=== PATIENT | female | born 1980 | race Caucasian/White ===

== ENCOUNTER 2018-10-20 07:43 | Emergency (ER) | payer MEDICAID ==
--- NOTE | 2018-10-20 07:46 | EDPHY ---
H & P Time Seen by Provider: 10/20/18 07:46 HPI/ROS: CHIEF COMPLAINT: Cough for 5 days HISTORY OF PRESENT ILLNESS: Arrives by EMS from the nursing home complaining of coughing green sputum for 5 days. Associated with subjective fever and chills. Also associated with just feeling very tired. Not short of breath, no chest pain. Symptoms moderate. Not better or worse with anything. REVIEW OF SYSTEMS: Eye: no change in vision ENT: Some ear fullness but no sore throat or pharyngeal or dental complaints. Cardiac: no chest pain or syncope Pulmonary: HPI Abdomen: no vomiting, diarrhea, abdominal pain Musculoskeletal: Lower leg pain which is chronic the patient says she has neuropathy and used to take gabapentin. Skin: Some toe erosions from friction of her toenails Neuro: no headache Constitutional: no fever : no urinary symptoms A comprehensive 10 point review of systems is otherwise negative aside from elements mentioned in the history of present illness. PAST MEDICAL HISTORY: Includes PTSD, scoliosis, seizure 1 month ago in [place] which she says is from a newly diagnosed Chiari malformation. Social history: Residing at the nursing home General Appearance: Alert and conversant, cooperative. Eyes: No scleral icterus. ENT, Mouth: Normal mucous membranes. No pharyngeal erythema or exudate. No trismus. Uvula midline. Normal tympanic membranes. Respiratory: Normal respiratory effort, normal saturation, no accessory muscle use. Breath sounds equal bilaterally with slight expiratory wheezing heard. No focal lung sounds. Cardiovascular: Regular rate and rhythm. Gastrointestinal: Abdomen is soft and non tender. Neurological: Alert, face symmetric, normal motor and sensory in extremities. Skin: Excoriation on the 4th and 3rd toes from her toenails. She has bilateral toenail fungus and her toenails all extend at least 1 cm distal from the nail bed. Musculoskeletal: No peripheral edema. Psychiatric: Not agitated. Depressed affect, denies SI or HI or hallucinations. Emergency Department course/MDM: Patient presents with likely viral syndrome or bronchitis. She does not have clinical evidence of pneumonia, or influenza. She is out of the 48 hr treatment window for influenza. Doubt pulmonary embolism or pneumothorax. Nebulizer treatment, oral ibuprofen and Tylenol. Her foot looks like at least 2 toes have skin excoriation from long rough toenails and does not have clinical evidence of cellulitis. No redness or warmth or lymphangitis or swelling. Case management for follow-up. Constitutional: Initial Vital Signs Temperature (C) 36.8 C 10/20/18 07:45 Heart Rate 87 10/20/18 07:45 Respiratory Rate 18 10/20/18 07:45 Blood Pressure 122/93 H 10/20/18 07:45 O2 Sat (%) 97 10/20/18 07:45 O2 Delivery Mode Room Air Allergies/Adverse Reactions: Sulfa (Sulfonamide Antibiotics) Allergy (Verified 10/20/18 07:50) Home Medications: Medication Instructions Recorded Albuterol Hfa Anes Only [Proair 2 puffs IH QID #1 mdi 10/20/18 Hfa Icu (*)] Trileptal 10/20/18 Medical Decision Making - Data Points Medications Given: Discontinued Medications Acetaminophen (Tylenol) 650 mg PO EDNOW ONE Stop: 10/20/18 08:05 Last Admin: 10/20/18 08:11 Dose: 650 mg Albuterol/Ipratropium (Duoneb) 3 ml IH EDNOW ONE Stop: 10/20/18 08:05 Last Admin: 10/20/18 08:11 Dose: 3 ml Ibuprofen (Motrin) 600 mg PO EDNOW ONE Stop: 10/20/18 08:05 Last Admin: 10/20/18 08:10 Dose: 600 mg Departure - Departure Disposition: Home, Routine, Self-Care Clinical Impression: Acute bronchitis Condition: Good Instructions: Acute Bronchitis (ED) Referrals: [facility],. [Clinic] - As per Instructions Prescriptions: Albuterol Hfa Anes Only [Proair Hfa Icu (*)] 2 puffs IH QID #1 mdi
[2018-10-20] MEDS ORDERED: IPRATROPIUM/ALBUTEROL 3 ML DEYVIAL IH ONE (08:04)
[2018-10-20] MEDS ORDERED: ACETAMINOPHEN 325 MG TAB PO ONE (08:04)
[2018-10-20] MEDS ORDERED: IBUPROFEN 600 MG TAB PO ONE (08:04)
[2018-10-20 09:06] VITALS: BP 113/69
--- NOTE | 2018-10-20 10:51 | ASMTCMCOM ---
CM Note CM Note Notes: Pt presented to the ED via EMS for a productive cough x 5days. Pt is homeless and states she is from the [place] area and states her previous clinic was located in [place]. Of note, when this CM called [facility] to arrange Medicaid cab, it was discovered that pt's last name is actually Nils; MEdicaid has pt listed as Caron Wray w/ 81 and confirmed w/SSN. Registration spoke w/pt and she states she has identification cards that also list her last name as Sarita but was not willing to provide them to registration so registration is not able to change pt's name to Nils for this visit. Pt states she has completed Coordinated Entry and was referred to the [facility]. This CM arranged for a Medicaid cab to transport pt to [facility] so she is near [facility] when [facility]. Pt provided info on [facility] and their Homeless Drop-In Hours. Pt provided Rxns and recommended to get them filled through her Medicaid at a pharmacy of her choice. Pt asked for jacket or sweatshirt hoodie since she left her coat in [place]. This CM was only able to locate a sweatshirt hoodie which was provided to the pt. Pt states she already has gloves, a hat, a couple of scarves, etc. Pt provided other various homelessness resources including free community table meals, etc. CM available for further assistance if needed. Date Signed: 10/20/2018 10:51 AM Electronically Signed By:Bushra Graham RN
== END 2018-10-20 10:54 | disposition home or self-care (01) ==
DX: J20.9 Acute bronchitis, unspecified (principal); G93.5 Compression of brain; F43.10 Post-traumatic stress disorder, unspecified; M41.9 Scoliosis, unspecified; Z88.2 Allergy status to sulfonamides

== ENCOUNTER 2018-11-04 07:03 | Emergency (ER) | payer MEDICAID ==
--- NOTE | 2018-11-04 07:31 | EDPHY ---
HPI/HX/ROS/PE/MDM Narrative: CHIEF COMPLAINT: Sore throat, cough, frostbite hands HISTORY OF PRESENT ILLNESS: The patient is a 38 y/o female with a history of PTSD and neuropathy arriving via EMS complaining of a sore throat, blisters on her hands, and a headache onset several days ago. In late September she was in this emergency department and diagnosed with bronchitis. At that time she was prescribed an inhaler, which she states she did not fill. Her symptoms did not improve and she presented to the [facility] where she was diagnosed with pneumonia and prescribed Doxycycline. Since starting the antibiotics her cough and sore throat have worsened which is associated with coughing up green sputum. She has also had a subjective fever of 101 degrees primarily at night. In addition to her respiratory symptoms, she has blisters on both hands which she believes is due to frostbite and not a burn. Also reports poor po intake due to pain from blisters on tongue. No chills, chest pain, shortness of breath, palpitations, vomiting, diarrhea, urinary complaints, lightheadedness. REVIEW OF SYSTEMS: Aside from elements discussed in the HPI, a comprehensive 10-point review of systems was reviewed and is negative. PAST MEDICAL HISTORY: PTSD, scoliosis, neuropathy in feet, malformation in brain SOCIAL HISTORY: Transient, single, not employed, smokes tobacco VITAL SIGNS: Reviewed by me GENERAL: Somewhat discheveled, occasional cough, resting comfortably in no respiratory distress. HEENT: Atraumatic. Eyes: No icterus, no injection. Mouth: moist mucous membranes. Apthous ulcers on bilateral aspects of her tongue. No tonsillar enlargement or exudates. No erythema or lesions. Neck: supple with no adenopathy. LUNGS: Clear to auscultation bilaterally but with coarse breath sounds, no wheezes, rhonchi or rales. CARDIAC: Mild tachycardic, no rubs, murmurs or gallops. ABDOMEN: Soft, nontender, nondistended, bowel sounds normal. BACK: No CVA tenderness. EXTREMITIES: Range of motion is normal throughout. NEURO: Alert and oriented, grossly nonfocal. SKIN: Right hand: 1.5 cm blister over distal tip of the middle finger. Left Hand : 2 cm fluid filled blister covering entire distal phalanx of the thumb, blisters on index and middle. The middle finger has a popped blister over distal phalanxs and smaller blister on middle phalanx. Warm and dry, no rash. PSYCHIATRIC: Normal mentation, no agitation. Portions of this note were transcribed by a rn medical inpatient services. I personally performed a history, physical exam, medical decision making, and confirmed accuracy of information the transcribed note. ED Course: The patient is a 38 y/o female with a history of PTSD and neuropathy arriving via EMS complaining of a sore throat, blisters on her hands, and a headache onset several days ago. She was recently diagnosed with bronchitis and pneumonia and started on Doxycycline. On exam today she has bilateral ulcerations on her tongue. Her posterior pharynx is clear and she has no tonsillar enlargement. She has blisters consistent with frostbite on ther hands. Patient most likely has a viral infection, bronchitis, and frostbite on her fingers. 1gm Tylenol and 500mg Zithromax administered. 0805: Reassessed patient and discussed her prescriptions. Robitussin DM administered prior to discharge. I have advised her to use the albuterol inhaler (which she was given in the ED), to filler her azithromycin, and to use Magic Mouthwash, and take Tylenol or ibuprofen. Return precautions provided; patient is comfortable with this plan. MDM: Diff dx considered included viral syndrome, bronchitits, frostbite, thermal patel, seizure activity, [id number] disease, dehydration. - Data Points Medications Given: Discontinued Medications Acetaminophen (Tylenol) 1,000 mg PO EDNOW ONE Stop: 11/04/18 07:38 Last Admin: 11/04/18 07:51 Dose: 1,000 mg Albuterol Sulfate (Proventil Inh Prepack) 1 mdi TAKEHOME EDNOW ONE Stop: 11/04/18 07:43 Last Admin: 11/04/18 07:52 Dose: 1 mdi Azithromycin (Zithromax) 500 mg PO EDNOW ONE PRN Reason: Protocol Stop: 11/04/18 07:39 Last Admin: 11/04/18 07:52 Dose: 500 mg Guaifenesin/Dextromethorphan (Robitussin Dm Oral Liquid) 10 ml PO ONCE ONE Stop: 11/04/18 08:00 Last Admin: 11/04/18 08:17 Dose: 10 ml General Time Seen by Provider: 11/04/18 07:11 Initial Vital Signs: Initial Vital Signs Temperature (C) 37.3 C 11/04/18 07:06 Heart Rate 117 H 11/04/18 07:06 Respiratory Rate 18 11/04/18 07:06 Blood Pressure 115/70 11/04/18 07:06 O2 Sat (%) 97 11/04/18 07:06 O2 Delivery Mode Room Air Allergies/Adverse Reactions: Sulfa (Sulfonamide Antibiotics) Allergy (Verified 10/20/18 07:50) Home Medications: Medication Instructions Recorded Albuterol Hfa Anes Only [Proair 2 puffs IH QID #1 mdi 10/20/18 Hfa Icu (*)] Trileptal 10/20/18 Azithromycin [Zithromax] 250 mg PO DAILY #4 tab 11/04/18 Guaifen/Dextromethorphan/PE 5 ml PO Q6 PRN #118 liquid 11/04/18 [Cough-Cold Syrup] Ibuprofen 600 mg PO Q8 PRN #20 tablet 11/04/18 Mbx Soln;Maalox/Diphen/Lido 5 ml PO PRN PRN #60 ml 11/04/18 [Maalox/Diphenhydramine/Lido] Departure - Departure Disposition: Home, Routine, Self-Care Clinical Impression: Viral syndrome, Bronchitis Frostbite Qualifiers: Encounter type: initial encounter Qualified Code(s): T33.90XA - Superficial frostbite of unspecified sites, initial encounter Condition: Good Instructions: Albuterol (By breathing), Frostbite (ED), Acute Bronchitis (ED), Viral Syndrome (ED) Additional Instructions: Follow-up with your primary doctor within 72 hours. Please use the albuterol inhaler 3 to 4 times a day for cough. Please take the antibiotic as directed. Azithromycin 250 mg once a day starting tomorrow morning. Her 1st dose was given in the emergency department. You been given a prescription for a cough syrup. Please take this as directed. You been given a prescription of Magic mouthwash. Please swish and swallow this to help with the pain from the blisters on her tongue and to help with your throat pain. Do not allow your fingers to become cold or rodriguez bitten again. Do not pop the blisters on your fingers. Please take Tylenol or ibuprofen as needed for pain on your fingers. Return to the Emergency Department for fever, chest pain, shortness of breath, increasing pain or other worsening of condition. Referrals: [facility],. [Clinic] - As per Instructions Prescriptions: Azithromycin [Zithromax] 250 mg PO DAILY #4 tab Guaifen/Dextromethorphan/PE [Cough-Cold Syrup] 5 ml PO Q6 PRN #118 liquid PRN Reason: Cough, Mild Ibuprofen 600 mg PO Q8 PRN #20 tablet PRN Reason: pain Mbx Soln;Maalox/Diphen/Lido [Maalox/Diphenhydramine/Lido] 5 ml PO PRN PRN #60 ml PRN Reason: mouth pain Report Scribed for: Sabrina Hodge Report Scribed by: Mara Hou Date of Report: 11/04/18 Time of Report: 07:29
[2018-11-04] MEDS ORDERED: ACETAMINOPHEN 500 MG TAB PO ONE (07:37)
[2018-11-04] MEDS ORDERED: AZITHROMYCIN 250 MG TAB PO ONE (07:38)
[2018-11-04] MEDS ORDERED: ALBUTEROL INH PREPACK MDI TAKEHOME ONE (07:42)
[2018-11-04] MEDS ORDERED: GUAIFENESIN/DM 10 ML UDCUP PO ONE (07:59)
[2018-11-04 08:52] VITALS: BP 119/73
== END 2018-11-04 09:04 | disposition home or self-care (01) ==
LOC: EDUNIT#
DX: B34.9 Viral infection, unspecified (principal); J40 Bronchitis, not specified as acute or chronic; T33.522A Superficial frostbite of left hand, initial encounter; T33.521A Superficial frostbite of right hand, initial encounter; K14.0 Glossitis; X58.XXXA Exposure to other specified factors, initial encounter; Y92.9 Unspecified place or not applicable; Y93.9 Activity, unspecified; Y99.9 Unspecified external cause status

== ENCOUNTER 2019-01-14 14:32 | Inpatient (IN) | payer MEDICAID, OTHER ==
[2019-01-14 15:05] LABS: PLATELET COUNT 289 10^3/uL (150-400)
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
[2019-01-14] MEDS ORDERED: OLANZapine DISINTEGR 10 MG TAB ONE (18:56)
[2019-01-14] MEDS ORDERED: OLANZapine DISINTEGR 10 MG TAB PO ONE (18:59)
[2019-01-14] MEDS ORDERED: NICOTINE 21 MG/24 HR PATCH TD ONE (19:01)
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
--- NOTE | 2019-01-14 21:00 | ASMTTCLDSP ---
TLC Discharge Disposition Discharge Concerns/Recommendations: Notes: In consultation with [facility] ED physician,Dr Padilla and on-call psychiatrist,Dr Penn , both concurred that Pt does appear to meet 27-65 criteria requiring psychiatric hospitalization as Pt does appear to be an imminent risk of harm to others and gravely disabled due to a mental illness condition. Pt was read the Patient Rights and Responsibilities Statement on 01/14/2019 at 20:00, original placed in chart and copy given to pt. Was patient given the Answers: Yes Inpatient Behavioral Health Prohibited Belongings List while in the ED? For inpatient Dr Penn admission, the following psychiatrist agreed to accept patient for admission to Behavioral Health ([facility]): Type of Hold: Answers: M1/72-hour Hold Hold initiated by: Answers: Police Date Signed: 01/14/2019 08:59 PM Electronically Signed By:Remedios Rutledge
[2019-01-14] MEDS ORDERED: MAG HYDROX/AL HYDROX/SIMETH 30 ML UDCUP PO PRN (23:00)
[2019-01-14] MEDS ORDERED: MAGNESIUM HYDROXIDE 30 ML UDCUP PO PRN (23:00)
[2019-01-14] MEDS ORDERED: ACETAMINOPHEN 325 MG TAB PO PRN (23:00)
[2019-01-14] MEDS ORDERED: MELATONIN 3 MG TAB PO PRN (23:00)
[2019-01-15] MEDS: LORazepam 0.5 MG TAB PO PRN ×3 (08:21→22:13)
[2019-01-15] MEDS: IBUPROFEN 600 MG TAB PO PRN ×2 (08:29→16:02)
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
--- NOTE | 2019-01-15 13:46 | SOAPPROG ---
SOAP Progress Note Assessment/Plan: Assessment: Scattered abrasions on hands. No signs or some infection. Expect spontaneous healing with no particular treatment indicated. History of peripheral neuropathy. She has a normal B12 do normal TSH. I will leave to the discretion of Psychiatry whether to initiate gabapentin which she requested. Consider referral to Neurology after discharge. Iron deficiency anemia. I will prescribe iron sulfate 325 mg q.day, which should continue for approximately a month. She can follow up with primary care after discharge. 01/15/19 13:43 Subjective: Asked to see patient about sores on her hands. She complains of peripheral neuropathy in her hands feet and back. For she says it has been present for a day and then she reports that it is chronic. She requests gabapentin 600 mg 3 times a day for it. Objective: Vital Signs Temp Pulse Resp BP Pulse Ox 36.4 C 105 H 14 99/55 L 95 01/14/19 22:56 01/14/19 22:56 01/14/19 22:56 01/14/19 22:56 01/14/19 22:56 Physical Exam - Physical Exam General Appearance: WD/WN, no apparent distress, other (Drowsy) Respiratory: No respiratory distress, No accessory muscle use Skin: normal color, warm/dry, other (Multiple abrasions with eschar) Neuro/Psych: alert, other (Mild ataxia bilateral hands) ICD10 Worksheet Patient Problems: Problems Problem Status Onset Viral syndrome Acute Bronchitis Acute Frostbite Acute Psychosis Acute
[2019-01-15] MEDS: GABAPENTIN 300 MG CAP PO SCH ×2 (15:57→22:13)
[2019-01-15] MEDS: ARIPiprazole 10 MG TAB PO SCH (15:58)
--- NOTE | 2019-01-15 15:58 | SOAPPROG ---
SOAP Progress Note Assessment/Plan: Assessment: Plan: Subjective: Pt seen on three occasions today. She was hostile and refused interview on first two occasions, stating she was tired. On the third occasion she is willing to discuss her meds. She states she wants to restart gabapentin, Abilify, and hydroxyzine. I agreed to do this and she agreed to give a full interview tomorrow. Objective: Vital Signs Temp Pulse Resp BP Pulse Ox 36.4 C 105 H 14 99/55 L 95 01/14/19 22:56 01/14/19 22:56 01/14/19 22:56 01/14/19 22:56 01/14/19 22:56 ICD10 Worksheet Patient Problems: Problems Problem Status Onset Psychosis Acute Bronchitis Acute Frostbite Acute Viral syndrome Acute
--- NOTE | 2019-01-15 16:12 | PDMN ---
Medical Necessity Medical necessity: Pt meets IP criteria per & PAUL B-[id number]; est los >2 mn for eval/tx of schizophrenia spectrum & other psychotic disorder; pt hostile & on M1 hold for being danger to others; admit for further monitoring, safety, crisis stabilization & med management; hx homelessness; per order & CM report
[2019-01-15] MEDS: FERROUS SULFATE 325 MG TAB PO SCH (17:52)
[2019-01-15] MEDS: hydrOXYzine HCL 50 MG TAB PO PRN (17:52)
[2019-01-16] MEDS: FERROUS SULFATE 325 MG TAB PO SCH (08:06)
[2019-01-16] MEDS: GABAPENTIN 300 MG CAP PO SCH ×3 (08:06→20:50)
[2019-01-16] MEDS: ARIPiprazole 10 MG TAB PO SCH (08:06)
[2019-01-16] MEDS: LORazepam 0.5 MG TAB PO PRN ×2 (08:30→16:54)
[2019-01-16] MEDS ORDERED: QUEtiapine FUMARATE 50 MG TAB PO PRN (11:45)
[2019-01-16] MEDS: OLANZapine DISINTEGR 5 MG TAB PO PRN (13:35)
[2019-01-16] MEDS: NICOTINE 21 MG/24 HR PATCH TD SCH (13:35)
--- NOTE | 2019-01-16 14:59 | ASMTCMCOM ---
CM Note CM Note Notes: CC tried checking in with ct. but she was sound asleep and refused to engage in conversation. Date Signed: 01/16/2019 02:59 PM Electronically Signed By:Shannon German
[2019-01-16] MEDS: IBUPROFEN 600 MG TAB PO PRN (16:58)
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
[2019-01-16] MEDS: hydrOXYzine HCL 50 MG TAB PO PRN (20:57)
[2019-01-17] MEDS: ARIPiprazole 10 MG TAB PO SCH (08:37)
[2019-01-17] MEDS: FERROUS SULFATE 325 MG TAB PO SCH (08:38)
[2019-01-17] MEDS: GABAPENTIN 300 MG CAP PO SCH ×3 (08:38→20:32)
[2019-01-17] MEDS: NICOTINE 21 MG/24 HR PATCH TD SCH ×3 (08:39→17:43)
--- NOTE | 2019-01-17 08:40 | ASMTCMCOM ---
CM Note CM Note Notes: Per nurse's information ct. has been in her room, asleep most of the time since her admission. This morning ct. was in the milliue. She was wearing pink gloves on her hands and was observed talking to herself. This CC tried engaging ct. in conversation but ct. refused saying repeatedly "do not speak to me I'm busy". Ct. appears to be responding to internal stimuli. Appearance is very disheveled. Date Signed: 01/17/2019 08:40 AM Electronically Signed By:Shannon German
[2019-01-17] MEDS: LORazepam 0.5 MG TAB PO PRN ×3 (08:44→17:30)
[2019-01-17] MEDS: OLANZapine DISINTEGR 5 MG TAB PO PRN ×2 (08:44→17:31)
--- NOTE | 2019-01-17 13:10 | SOAPPROG ---
SOAP Progress Note Assessment/Plan: Assessment: Plan: 01/17/19 13:11 Psychosis: Remains agitated, hostile, paranoid. Compliant with meds. Requested Marianne Hollins yesterday and I will write this for today. She states she was on this "for a long time" in the past. Placed on STC due to danger to others and grave disability. I discussed with her the criteria to convert to voluntary status inc: resolution of paranoia and less hostile and threatening behaviors. Subjective: Pt seen, discussed with staff. RN reports pt was up early, demanding to see her belongings, threatening staff. Described as very disorganized, paranoid, hostile. She is in bed when I enter room. Room is in disarray with a line of toilet paper dividing it into two areas. Very foul smelling. She refuses interview stating she is "too tired". She refuses to attend Treatment Team meeting, stating, "I don't like meetings." Objective: Vital Signs Temp Pulse Resp BP Pulse Ox 36.7 C 84 20 119/72 96 01/16/19 06:00 01/16/19 06:00 01/16/19 06:00 01/16/19 06:00 01/16/19 06:00 MSE: Lying in bed. Poor eye contact. Disheveled, malodorous. Affect is restricted, hostile. Mood is "bad." TP is disorganized. TC reveals paranoia. - Time Spent With Patient Time Spent With Patient: 15" ICD10 Worksheet Patient Problems: Problems Problem Status Onset Psychosis Acute Bronchitis Acute Frostbite Acute Viral syndrome Acute
[2019-01-17] MEDS: IBUPROFEN 600 MG TAB PO PRN ×2 (13:19→17:30)
[2019-01-17] MEDS: hydrOXYzine HCL 50 MG TAB PO PRN (20:34)
[2019-01-18] MEDS: NICOTINE 21 MG/24 HR PATCH TD SCH (08:35)
[2019-01-18] MEDS: ARIPiprazole 10 MG TAB PO SCH (08:35)
[2019-01-18] MEDS: FERROUS SULFATE 325 MG TAB PO SCH (08:35)
[2019-01-18] MEDS: GABAPENTIN 300 MG CAP PO SCH ×3 (08:35→20:57)
[2019-01-18] MEDS: LORazepam 0.5 MG TAB PO PRN ×2 (08:55→17:22)
[2019-01-18] MEDS: OLANZapine DISINTEGR 5 MG TAB PO PRN ×2 (11:17→17:25)
[2019-01-18] MEDS: IBUPROFEN 600 MG TAB PO PRN (11:43)
[2019-01-18] MEDS: hydrOXYzine HCL 50 MG TAB PO PRN (11:43)
--- NOTE | 2019-01-18 21:38 | SOAPPROG ---
SOAP Progress Note Assessment/Plan: Assessment: 38yo homeless CF with long hx mental illness admitted with acute psychosis and recent aggressive bx. Has been irritable and verbally aggressive, isolative, with poor self care. Restarted on Abilify and has been compliant. Requested Maintenna. 01/18/19 12:39 staff report pt slept 8.5hr. wearing synthetic pink gloves and refusing to remove them. Has been taking meds, and also using prns. noted to be yelling in her room at times, responding to internal stim, and verbally demanding. On eval, pt reports she just showered. Noted with damp disheveled hair. States she is wearing gloves "to help protect myself" but no elaboration. States she is "feeling better now" since back on medications, but then adds, "even without them I was able to make conscious decisions for myself." states she will stay for continued treatment, but then requests to leave. pt was reminded of STC status. MSE: cooperative, fair eye contact, sitting on side of bed. somewhat irritable with abrupt responses to questions which were at times contradictory. did not appear responding to internal stim on interview but still paranoid, guarded. denied SI. Plan: Cont current meds. Abilify 20, Gabapentin 600 tid, and prns pt request Abilify Maintenna monitor for improving hygiene/self-care Objective: Vital Signs Temp Pulse Resp BP Pulse Ox 36.6 C 111 H 16 115/67 97 01/18/19 06:00 01/18/19 06:00 01/18/19 06:00 01/18/19 06:00 01/18/19 06:00 - Time Spent With Patient Time Spent With Patient: 15min - Pending Discharge Pending Discharge Within 24 Hours: No Pending Discharge Within 48 Hours: No ICD10 Worksheet Patient Problems: Problems Problem Status Onset Psychosis Acute Bronchitis Acute Frostbite Acute Viral syndrome Acute
[2019-01-19] MEDS: FERROUS SULFATE 325 MG TAB PO SCH (08:16)
[2019-01-19] MEDS: NICOTINE 21 MG/24 HR PATCH TD SCH (08:16)
[2019-01-19] MEDS: ARIPiprazole 10 MG TAB PO SCH (08:16)
[2019-01-19] MEDS: GABAPENTIN 300 MG CAP PO SCH ×3 (08:16→21:22)
[2019-01-19] MEDS: LORazepam 0.5 MG TAB PO PRN ×2 (09:05→15:42)
--- NOTE | 2019-01-19 13:37 | ASMTCMCOM ---
CM Note CM Note Notes: CC tried to speak to client briefly on the unit. However, client stated, "[I] don't want to speak to you..." Client was wearing pink gloves on her hands as well as observed talking to herself, as responding to internal stimuli. Client is very un-kept. . Date Signed: 01/19/2019 01:36 PM Electronically Signed By:Jh Cosby
--- NOTE | 2019-01-19 22:01 | SOAPPROG ---
SOAP Progress Note Assessment/Plan: Assessment: 38yo homeless CF with long hx mental illness admitted with acute psychosis and recent aggressive bx. Has been irritable and verbally aggressive, isolative, with poor self care. THC+ Restarted on Abilify and has been compliant. 01/19/19 15:32 staff report pt slept 14hr. still wearing pink gloves and refusing to remove them altho did eventually for staff to eval hands which were reportedly unremarkable. Attending groups and trying to participate, but with illogical or disorganized comments at times. Has been compliant with taking meds, still noted to be yelling in her room at times but a little less, seems still responding to internal stim, and with occasional verbal hostility. On eval, pt reports she showered yesterday (staff question whether used shampoo) . Reports feeling fine on current medications, no s/e, ready to leave hosp, "I have places I can stay, and stuff I have to do," and "I will go to [facility]". Unable to provide more details. States she is still wearing gloves "to protect myself" . when asked about her yelling, pt stated "because I'm episcopalian." MSE: cooperative, good eye contact, no abn invol mvmts noted, apparent unwashed disheveled hair, wearing pink gloves, sitting on bed. mood "fine", affect controlled. engaging superficially with brief, vague responses to questions, becoming more disorganized and guarded with increased probing questions, denied AH/VH or any SI/HI. noted to be yelling in room when no one present. i/j impaired. Plan: Cont Abilify, increase to 30mg and monitor, and plan Maintenna Cont Gabapentin 600 tid, and prns Staff report some improving hygiene/self-care but hair seems unwashed. Using Ativan 1mg 2x/day recently. Cont on STC Objective: Vital Signs Temp Pulse Resp BP Pulse Ox 36.6 C 104 H 16 117/70 94 01/18/19 06:00 01/19/19 06:00 01/19/19 06:00 01/19/19 06:00 01/19/19 06:00 - Time Spent With Patient Time Spent With Patient: 15min - Pending Discharge Pending Discharge Within 24 Hours: No Pending Discharge Within 48 Hours: No ICD10 Worksheet Patient Problems: Problems Problem Status Onset Psychosis Acute Bronchitis Acute Frostbite Acute Viral syndrome Acute
[2019-01-20] MEDS: GABAPENTIN 300 MG CAP PO SCH ×3 (07:51→21:42)
[2019-01-20] MEDS: IBUPROFEN 600 MG TAB PO PRN (07:51)
[2019-01-20] MEDS: LORazepam 0.5 MG TAB PO PRN ×2 (07:51→17:34)
[2019-01-20] MEDS: FERROUS SULFATE 325 MG TAB PO SCH (07:52)
[2019-01-20] MEDS: NICOTINE 21 MG/24 HR PATCH TD SCH (07:52)
[2019-01-20] MEDS: ARIPiprazole 10 MG TAB PO SCH (09:47)
[2019-01-20] MEDS ORDERED: NICOTINE POLACRILEX 2 MG GUM B ONE (10:06)
--- NOTE | 2019-01-20 12:07 | ASMTCMCOM ---
CM Note CM Note Notes: Pt. reports she is "doing fine". Pt. stated "medicine seems to be helping". Pt. reports feeling stable. Pt. stated she has a place to stay in [place]. Pt. reports "many people care about me". Pt. reports being open with [facility] and needing a prescriber. Pt. reports sleeping "fine, got up early". Pt. reports "sometimes need more [to eat]" on her trays. Pt. reports no issues with her current medications. Pt. reports "going to a few groups". Pt. denied SI, HI, AVH and paranoia. Pt. stated she would like to discharge "by next Sunday". Pt. reports planning on traveling to [place] "by August". Pt. stated she has no concerns about discharging Pt. stated [facility] is better at helping her if she is in need of medication, [facility] in [place]. Pt. presents as alert, mostly calm, overcompensating for lack of d/c plans, staring eye contact, demanding at times, and cooperative. Staff report pt. sleeping 8 hours and being medication compliant. CC to reach out to [facility] for follow up appointments. Date Signed: 01/20/2019 12:06 PM Electronically Signed By:Sierra Concepcion
--- NOTE | 2019-01-20 17:21 | SOAPPROG ---
SOAP Progress Note Assessment/Plan: Assessment: Plan: 01/17/19 13:11 Psychosis: Remains agitated, hostile, paranoid. Compliant with meds. Requested Abilify Maintenna yesterday and I will write this for today. She states she was on this "for a long time" in the past. Placed on STC due to danger to others and grave disability. I discussed with her the criteria to convert to voluntary status inc: resolution of paranoia and less hostile and threatening behaviors. 01/20/19 17:17 Psychosis: Minimal plant changer the weekend. Will CCM. Will order Maintena. Subjective: Pt seen, discussed with staff, chart reviewed. WE revealed ongoing paranoia, irritability, disorganization, isolation, verbal aggression and internal preoccupation. She remains compliant with meds. Minimally interactive with me today. Objective: Vital Signs Temp Pulse Resp BP Pulse Ox 36.9 C 109 H 16 99/52 L 95 01/20/19 05:38 01/20/19 05:38 01/20/19 05:38 01/20/19 05:38 01/20/19 05:38 MSE: Guarded, irritable. Disheveled. Affect is restricted, stable. Mood is "bad." TP is disorganized. TC reveals ongoing paranoia, internal preoccupation. - Time Spent With Patient Time Spent With Patient: 15" ICD10 Worksheet Patient Problems: Problems Problem Status Onset Psychosis Acute Bronchitis Acute Frostbite Acute Viral syndrome Acute
[2019-01-20] MEDS: hydrOXYzine HCL 50 MG TAB PO PRN (18:43)
[2019-01-21] MEDS: FERROUS SULFATE 325 MG TAB PO SCH (08:37)
[2019-01-21] MEDS: GABAPENTIN 300 MG CAP PO SCH ×3 (08:37→20:12)
[2019-01-21] MEDS: ARIPiprazole 10 MG TAB PO SCH (08:37)
[2019-01-21] MEDS: NICOTINE 21 MG/24 HR PATCH TD SCH (08:37)
[2019-01-21] MEDS: LORazepam 0.5 MG TAB PO PRN ×2 (09:16→15:35)
[2019-01-21] MEDS ORDERED: ARIPIPRAZOLE (ABILIFY MAINTENA) 400 MG VIAL IM ONE (10:00)
[2019-01-21] MEDS: IBUPROFEN 600 MG TAB PO PRN (11:13)
[2019-01-21] MEDS: hydrOXYzine HCL 50 MG TAB PO PRN (11:13)
[2019-01-21] MEDS ORDERED: TUBERCULIN (PPD) 5 TU/0.1 ML SYRINGE ID ONE (11:15)
--- NOTE | 2019-01-21 14:23 | SOAPPROG ---
SOAP Progress Note Assessment/Plan: Assessment: Plan: 01/17/19 13:11 Psychosis: Remains agitated, hostile, paranoid. Compliant with meds. Requested Abilify Maintenna yesterday and I will write this for today. She states she was on this "for a long time" in the past. Placed on STC due to danger to others and grave disability. I discussed with her the criteria to convert to voluntary status inc: resolution of paranoia and less hostile and threatening behaviors. 01/20/19 17:17 Psychosis: Minimal change lead the weekend. Will CCM. Will order Maintena. 01/21/19 14:27 Psychosis: Much improved today. Will administer PALOMARES, monitor. Finalize d/c plan. Subjective: Pt seen, discussed with staff, interviewed in Treatment Team meeting. She is much improved. She is pleasantly and appropriately conversant. Continues to request PPD and PALOMARES. Discussed d/c and f/u plans. She is able outline local resources for housing and mental health f/u. Compliant with meds here. Less irritable and more organized today. Objective: Vital Signs Temp Pulse Resp BP Pulse Ox 36.9 C 109 H 16 99/52 L 95 01/20/19 05:38 01/20/19 05:38 01/20/19 05:38 01/20/19 05:38 01/20/19 05:38 MSE: Calm, coop., though still a bit guarded. Affect is restricted, stable, approp. Mood is "good." TP is generally linear. TC reveals no mention of delusions, no notable internal preoccupation. Denies SI/HI/. - Time Spent With Patient Time Spent With Patient: 25" ICD10 Worksheet Patient Problems: Problems Problem Status Onset Psychosis Acute Bronchitis Acute Frostbite Acute Viral syndrome Acute
[2019-01-22] MEDS: LORazepam 0.5 MG TAB PO PRN ×2 (06:13→10:06)
[2019-01-22 06:49] VITALS: BP 108/70
[2019-01-22] MEDS: GABAPENTIN 300 MG CAP PO SCH (08:29)
[2019-01-22] MEDS: FERROUS SULFATE 325 MG TAB PO SCH (08:29)
[2019-01-22] MEDS: ARIPiprazole 10 MG TAB PO SCH (08:29)
[2019-01-22] MEDS: NICOTINE 21 MG/24 HR PATCH TD SCH (08:29)
[2019-01-22] MEDS: hydrOXYzine HCL 50 MG TAB PO PRN (09:30)
[2019-01-22] MEDS: IBUPROFEN 600 MG TAB PO PRN (10:05)
--- NOTE | 2019-01-22 10:12 | ASMTBHDC ---
Notes Note: Notes: CC confirmed all necessary out paitent apts: Follow up with: [facility] [address] [facility], [address] [place] [address] Next Apt: oJvana Loomis ([place]) Sunday01/28/19 at 9:30 a.m., check in at 9:15 a.m., (at above address). * Next Medication Apt: SundayJanuary 29 (01/29/19), check in at 3 pm. Appointment with Nurse Prescriber Aly Canales (at the above location). This is telehealth appointment. [facility] [address] [place] [address] Must complete coordinated entry prior to arriving at [facility]. See Handout [facility] [address] [place] [address] Date Signed: 01/22/2019 10:11 AM Electronically Signed By:Jh Cosby
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
== END 2019-01-22 11:05 | disposition home or self-care (01) | DRG 885 ==
LOC: BBEH 22:30
PROVIDERS: ADMIT Psychiatry & Neurology Behavioral Neurology & Neuropsychiatry; ATTEND Psychiatry & Neurology Behavioral Neurology & Neuropsychiatry
DX: F29 Unspecified psychosis not due to a substance or known physiological condition (principal); F43.10 Post-traumatic stress disorder, unspecified; D50.9 Iron deficiency anemia, unspecified; G62.9 Polyneuropathy, unspecified; Z59.0 Homelessness; Z72.0 Tobacco use; Z91.19 Patient's noncompliance with other medical treatment and regimen
CPT/HCPCS: 80305; 82607-90; G0480; J0401

== ENCOUNTER 2019-02-11 18:44 | Emergency (ER) | payer MEDICAID, OTHER ==
--- NOTE | 2019-02-11 18:55 | EDPHY ---
H & P Time Seen by Provider: 02/11/19 18:52 HPI/ROS: HPI CHIEF COMPLAINT: Possible foot infection. HISTORY OF PRESENT ILLNESS: Patient is a 38-year-old female, she presents emergency room by EMS for possible foot infection of her right foot. She reports she has sores on the bottom of her right foot. No fever. She has been wrapping this area. Patient is homeless, she denies SI or HI. History of psychosis and PTSD. Past Medical History: Significant medical history for acute psychosis, PTSD Past Surgical History: No Recent surgery Social History: Homeless. Family History: Noncontributory ROS REVIEW OF SYSTEMS: 10 Systems were reviewed and negative with the exception of the elements mentioned in the history of present illness. Exam Constitutional triage nursing summary reviewed, vital signs reviewed, awake/ alert. Eyes normal conjunctivae and sclera, EOMI, PERRLA. HENT normal inspection, atraumatic, moist mucus membranes, no epistaxis, neck supple/ no meningismus, no raccoon eyes. Respiratory clear to auscultation bilaterally, normal breath sounds, no respiratory distress, no wheezing. Cardiovascular rate normal, regular rhythm, no murmur, no edema, distal pulses normal. Gastrointestinal soft, non-tender, no rebound, no guarding, normal bowel sounds, no distension, no pulsatile mass. Genitourinary no CVA tenderness. Musculoskeletal no midline vertebral tenderness, full range of motion, no calf swelling, no tenderness of extremities, no meningismus, good pulses, neurovascularly intact. Skin right foot: Good cap refill, warm extremity good distal pulse, no signs of significant cellulitis. Toenails are extensive and dirt is under all of the toenails. Neurologic awake, alert and oriented x 3, AAOx3, moves all 4 extremities equally, motor intact, sensory intact, CN II-XII intact, normal cerebellar, normal vision, normal speech. Psychiatric normal mood/affect. Heme/Lymph/Immune no lymphadenopathy. Differential Diagnosis: Includes but is not limited to in a particular order grave disability, mood disorder, poor hygiene, dirt into the toes. He stood fraction cellulitis. Medical Decision Making: Plan for this patient will soak her feet with warm soapy water clean her toes. Re-evaluate Re-evaluation: 2012 patient's feet were cleaned here in the emergency room with warm soapy water. She states she feels better. She denies any other complaints. I did offer her if she will to speak to mental health however she declined this. She states she is not suicidal homicidal she does not want hurt herself or anybody else. She states she feels otherwise fine. She is asking for prescription for antibiotics for her feet. She has some mild redness over the right foot dorsum of the foot specifically the 2nd and 3rd toe. I will prescribe her Keflex for this. However this is greatly improved after she washed and cleaned her feet. We did discussed return precautions return emergency room if worsening symptoms questions or concerns. 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 - Social History Smoking Status: Current every day smoker Constitutional: Initial Vital Signs Temperature (C) 37 C 02/11/19 19:00 Heart Rate 98 02/11/19 19:00 Respiratory Rate 18 02/11/19 19:00 Blood Pressure 124/91 H 02/11/19 19:00 O2 Sat (%) 96 02/11/19 19:00 O2 Delivery Mode Room Air Allergies/Adverse Reactions: Sulfa (Sulfonamide Antibiotics) Allergy (Verified 01/14/19 14:32) Home Medications: Medication Instructions Recorded ARIPiprazole [Abilify] 30 mg PO DAILY 13 Days #13 tablet 01/22/19 Ferrous Sulfate [Ferrous Sulf 325 325 mg PO DAILY tab 01/22/19 MG (*)] Gabapentin 600 mg PO TID 30 Days #90 tablet 01/22/19 Nicotine [Nicoderm Cq 21 mg (*)] 21 mg TD DAILY patch 01/22/19 hydrOXYzine HCL 50 mg PO Q6HRS PRN 30 Days #120 tab 01/22/19 Cephalexin [Keflex] 500 mg PO Q6H #28 cap 02/11/19 Departure - Departure Disposition: Home, Routine, Self-Care Clinical Impression: Cellulitis Condition: Good Instructions: Cellulitis (ED) Additional Instructions: 1. Antibiotics as prescribed 2. Return to the emergency room if he develops worsening symptoms Referrals: NONE *PRIMARY CARE P,. [Primary Care Provider] - As per Instructions [facility],. [Clinic] - As per Instructions Prescriptions: Cephalexin [Keflex] 500 mg PO Q6H #28 cap
[2019-02-11 20:42] VITALS: BP 118/72
== END 2019-02-11 20:38 | disposition home or self-care (01) ==
LOC: EDUNIT#
DX: L03.115 Cellulitis of right lower limb (principal); Z59.0 Homelessness

== ENCOUNTER 2019-02-13 10:09 | Emergency (ER) | payer MEDICAID ==
[~2019-02-13 10:09] MED LIST: CEPHALEXIN 500 MG CAP PO SCH
--- NOTE | 2019-02-13 10:19 | EDPHY ---
H & P Time Seen by Provider: 02/13/19 10:16 HPI/ROS: HPI: This is a 38-year-old female who presents with Chief Complaint: Left foot sores Location: Left foot Quality: Sore Duration: 2 days Signs and Symptoms: No bleeding, no radiation, no numbness, no weakness, no tingling, no incontinence, no decreased range of motion, no swelling, + pain, no fever, + drainage Timing: Acute Severity: Moderate Context: Patient presents via EMS with complaints of 2 sores on her left foot at the medial aspect of her heel and 2nd toe. She reports that she was wearing wet shoes and developed the sores over the last 2 days. She reports that she has pain in the area of the sores that is increased with wearing her shoes and bearing weight with ambulation. Denies fevers, chills, radiation, weakness. Patient is homeless a history of psychosis and PTSD. Patient was seen in this emergency room 2 days ago complaining of right sores on her feet and given a prescription for Keflex. Patient reports that she never filled this prescription as she is unable to walk. Modifying Factors: No local wound care provided Comment: ROS: A comprehensive 10 system review of systems is otherwise negative aside from elements mentioned in the history of present illness. 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 Surgical history: Denies Social history: Homeless. Current every day smoker. CONSTITUTIONAL: Untidy, adult white female, multiple bags/items at bedside including computer printer, awake and alert, no obvious distress HEENT: Atraumatic and normocephalic, PERRL, EOMI. Nares patent; no rhinorrhea; no nasal mucosal edema. Tympanic membranes clear. Oropharynx clear, no exudate and moist pink mucosa. Airway patent. No lymphadenopathy. No meningismus. Cardiovascular: Normal S1/S2, regular rate, regular rhythm, without murmur rub or gallop. PULMONARY/CHEST: Symmetrical and nontender. Clear to auscultation bilaterally. Good air movement. No accessory muscle usage. ABDOMEN: Soft, nondistended, nontender, no rebound, no guarding, no peritoneal signs, no masses or organomegaly. No CVAT. EXTREMITIES: 2/2 pulses, strength 5/5, left Ankle: Plantar flexion to 50, dorsiflexion to 20. Foot inversion to 35 degree. No tenderness/swelling Anterior talofibular ligament. No tenderness/swelling Calcaneofibular ligament , no tenderness/swelling posterior talofibular ligament, no tenderness/swelling posterior inferior tibiofibular ligament. Achilles tendon intact. no deformities , no clubbing, no cyanosis or edema. NEUROLOGICAL: no focal neuro deficits. GCS 15. SKIN: Warm and dry, to eraser size stage I ulcerations noted on left 2nd toe distal aspect with no surrounding erythema and medial heel. no erythema. no rash. No discharge. No fluctuance. No eschar. Good capillary refill. Long thickened yellowed toenails noted bilaterally. 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 - Social History Smoking Status: Current every day smoker Constitutional: Initial Vital Signs Temperature (C) 36.8 C 02/13/19 10:15 Heart Rate 77 02/13/19 10:15 Respiratory Rate 16 02/13/19 10:15 Blood Pressure 114/77 02/13/19 10:15 O2 Sat (%) 98 02/13/19 10:15 O2 Delivery Mode Room Air Allergies/Adverse Reactions: Sulfa (Sulfonamide Antibiotics) Allergy (Verified 01/14/19 14:32) Home Medications: Medication Instructions Recorded ARIPiprazole [Abilify] 30 mg PO DAILY 13 Days #13 tablet 01/22/19 Ferrous Sulfate [Ferrous Sulf 325 325 mg PO DAILY tab 01/22/19 MG (*)] Gabapentin 600 mg PO TID 30 Days #90 tablet 01/22/19 Nicotine [Nicoderm Cq 21 mg (*)] 21 mg TD DAILY patch 01/22/19 hydrOXYzine HCL 50 mg PO Q6HRS PRN 30 Days #120 tab 01/22/19 Cephalexin [Keflex] 500 mg PO Q6H #28 cap 02/11/19 Cephalexin [Keflex (*)] 500 mg PO QID #28 cap 02/13/19 Medical Decision Making - Diagnostics Imaging Results: Imaging Impressions Foot X-Ray 02/13/19 10:15 Impression: Normal bones. No fracture, osteomyelitis, or arthropathy. ED Course/Re-evaluation: Vital signs reviewed and stable upon arrival. No systemic signs. Local wound care provided including washing with soap and water, bacitracin and clean sterile dressing applied Left foot x-ray ordered and my read shows no foreign body, no fracture, no dislocation, no osteomyelitis Case management consult. Calling [facility]. Verbal and written wound care instructions provided. 1245: Checked on patient and she is eating lunch that was provided for her. Given Keflex in the emergency room and and prescription filled at [facility] and given to the patient Appointment at the [facility] made for follow-up 1326: Patient walking back and forth to the bathroom without difficulty. 1353: [facility] called to take patient and all her belongings to the [facility] to get PPD in order for her to to be eligible to stay at [facility] for long chain beamer housing. Patient is very appreciative and excited about her new housing situation. No signs of neurovascular compromise/tenting of skin/compartment syndrome/ extremities and joints examined above and below area of concern and are neurovascularly intact/cellulitis/abscess/gangrene This patient was seen under the supervision of my primary supervising physician. I evaluated care for this patient independently. Differential Diagnosis: Differential diagnosis includes but is not limited to cellulitis, abscess, ulcer , maceration, fracture, osteomyelitis. - Data Points Medications Given: Discontinued Medications Cephalexin HCl (Keflex) 500 mg PO EDNOW ONE PRN Reason: Protocol Stop: 02/13/19 10:24 Last Admin: 02/13/19 11:10 Dose: 500 mg Departure - Departure Disposition: Home, Routine, Self-Care Clinical Impression: Skin infection, Skin ulcer, limited to breakdown of skin Condition: Good Instructions: Cellulitis (ED) Additional Instructions: Keep the dressing dry and in place for 48 hours. After 48 hours, you may remove the dressing; wash the site daily with mild soap and water; then pat dry. Apply topical antibiotic ointment and keep covered with sterile dressing until fully healed. Do not soak in a bathtub or go swimming until fully healed. Keep feet dry as possible. Take Tylenol 650 mg every 4 hours and/or Ibuprofen 600 mg every 8 hours with food as needed for pain. Take antibiotics as directed. Do not skip a dose. Keep follow-up appointment at the [facility]. Referrals: [facility],. [Primary Care Provider] - As per Instructions Prescriptions: Cephalexin [Keflex (*)] 500 mg PO QID #28 cap
[2019-02-13] MEDS ORDERED: CEPHALEXIN 500 MG CAP PO ONE (10:23)
[2019-02-13 14:45] VITALS: BP 139/82
--- NOTE | 2019-02-13 15:00 | ASMTCMCOM ---
CM Note CM Note Notes: Patient presents to the Ed after calling EMS for complaints of foot pain. Patient is homeless and has a history of mental illness and substance abuse. This CM contacted Dave at [facility] who confirms that patient has been through the coordinated entry process (last summer), and was designated to the [facility]. Per Dave, patient stayed at the [facility] a few nights in September, but did not follow up with her TB testing and is unable to return until she has her test completed. Dave tells this CM that patient is welcome to stay at the intermediate tonight if she receives her TB test this afternoon and provides the "card" to the intermediate which confirms when her test needs to be read. I have discussed the above with patient. I mapped her prescription for Keflix (Medicaid is not active) and have provided her with transportation (cab) to [facility] to get her TB test during this afternoons [facility]. I have contacted Ez at [facility] and confimed that patient will be heading over before 3PM. A intermediate bed at The [facility] has been reserved per this CM and patient is aware that she will need to get her TB test and verify this when she arrives at the intermediate. Patient verbalizes understanding and politely asks for a bus pass to get from the clinic to the intermediate. Bus pass provided. CM availabe for further needs prn Date Signed: 02/13/2019 02:59 PM Electronically Signed By:Nona Ansari RN
== END 2019-02-13 14:45 | disposition home or self-care (01) ==
LOC: EDUNIT#
DX: L97.521 Non-pressure chronic ulcer of other part of left foot limited to breakdown of skin (principal)

== ENCOUNTER 2019-02-19 18:16 | Emergency (ER) | payer MEDICAID, OTHER ==
[2019-02-19 18:35] VITALS: BP 107/65
--- NOTE | 2019-02-19 20:10 | EDPHY ---
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 - Social History Smoking Status: Current every day smoker Time Seen by Provider: 02/19/19 18:40 HPI/ROS: Chief complaint: Foot pain, back pain History of present illness: This is a 38-year-old female who returns to the emergency department for foot discomfort. She was seen 6 days ago here for the same. She was diagnosed with a foot infection and placed on antibiotics. She states she has only been taking the antibiotics intermittently. On further evaluation she also complains of back pain. She denies trauma. She denies paresthesias, weakness or paralysis or bowel or bladder dysfunction. She denies fevers. She denies other associated signs or symptoms. Review of systems: A 10 point review of systems was obtained and other than described above was negative (Dawit Garcia) - Physical Exam Exam: General Appearance: Alert and no distress. Eyes: Pupils equal and round no injection. Respiratory: Chest is non tender, lungs are clear to auscultation. Cardiac: regular rate and rhythm Gastrointestinal: Abdomen is soft and non tender, no masses, bowel sounds normal. Musculoskeletal: Neck is supple and non tender. The spine is tortuous in its alignment. Extremities have full range of motion and are non tender. She is ambulating well. Skin: Both feet are significantly macerated, no active infection appreciated ( Dawit Garcia) Constitutional: Initial Vital Signs Temperature (C) 36.9 C 02/19/19 18:33 Heart Rate 98 02/19/19 18:33 Respiratory Rate 16 02/19/19 18:33 Blood Pressure 107/65 02/19/19 18:33 O2 Sat (%) 96 02/19/19 18:33 O2 Delivery Mode Room Air Allergies/Adverse Reactions: Sulfa (Sulfonamide Antibiotics) Allergy (Verified 02/19/19 18:46) Home Medications: Medication Instructions Recorded ARIPiprazole [Abilify] 30 mg PO DAILY 13 Days #13 tablet 01/22/19 Ferrous Sulfate [Ferrous Sulf 325 325 mg PO DAILY tab 01/22/19 MG (*)] Gabapentin 600 mg PO TID 30 Days #90 tablet 01/22/19 Nicotine [Nicoderm Cq 21 mg (*)] 21 mg TD DAILY patch 01/22/19 hydrOXYzine HCL 50 mg PO Q6HRS PRN 30 Days #120 tab 01/22/19 Cephalexin [Keflex] 500 mg PO Q6H #28 cap 02/11/19 Cephalexin [Keflex (*)] 500 mg PO QID #28 cap 02/13/19 Medical Decision Making - Diagnostics Imaging: I viewed and interpreted images myself ED Course/Re-evaluation: Patient seen under the supervision of my secondary supervising physician Dr. Sabrina Hodge. Patient presents to the emergency department for ongoing foot pain and a secondary complaint after I evaluated her foot pain of back pain. Feet appear to have poor hygiene. Skin is macerated. I do not appreciate significant active infection. She had x-rays of her foot taken last time. I have asked her to take her medications, her antibiotics specifically as prescribed until finished. X-rays of the back shows significant scoliosis but no acute findings. She will be discharged. Home care is discussed. Return precautions are given. (Dawit Garcia) Differential Diagnosis: Included but not limited to macerated skin from poor hygiene, trench foot, cellulitis, back pain secondary to spasms, chronic spine deformity, doubtful acute process (Dawit Garcia) Other Provider: The patient was evaluated and managed by the Physician Certified Maintenance Welder. My co- signature indicates that I have reviewed this chart and I agree with the findings and plan of care as documented. I am the secondary supervising physician. (Sabrina Hodge) Departure - Departure Disposition: Home, Routine, Self-Care Clinical Impression: Maceration of skin Condition: Good Instructions: Acute Wounds (ED) Additional Instructions: Please follow-up with a primary care doctor within the next week for continued evaluation and care Please take antibiotics that were previously prescribed as directed until finished Please change socks daily, keep foot warm and dry Symptoms worsen or new symptoms develop return to the emergency room for recheck Referrals: Africa Mae NP [Primary Care Provider] - As per Instructions
== END 2019-02-19 20:31 | disposition home or self-care (01) ==
DX: T69.021A Immersion foot, right foot, initial encounter (principal); T69.022A Immersion foot, left foot, initial encounter

== ENCOUNTER 2019-03-10 08:33 | Emergency (ER) | payer MEDICAID ==
--- NOTE | 2019-03-10 08:59 | EDPHY ---
H & P Time Seen by Provider: 03/10/19 08:47 HPI/ROS: CHIEF COMPLAINT: "My toe is infected and I think I might be " HISTORY OF PRESENT ILLNESS: 38-year-old immunocompetent homeless female walked to the ER with 2 complaints. 1st complaint is left great toe erythema, discharge from the subungual region for the past 4 days. History of poor foot hygiene. Followed at the [facility] seen most recently 1 week ago with foot hygiene discussed at that time per the patient. Denies: Fever, chills, nausea, vomiting 2nd complaint is requesting a test, is late on her menstrual period. No abdominal pain. No chest pain. No dyspnea. No vaginal bleeding or discharge. No urinary abnormality. Denies: Fever, chills, nausea, vomiting, flu-like symptoms, trauma or fall. PRIMARY CARE PROVIDER: [facility] REVIEW OF SYSTEMS: 10 systems reviewed and negative with the exception of the elements mentioned in the history of present illness PAST MEDICAL & SURGICAL HISTORY: Immunocompetent, specifically, denies history of diabetes, hepatitis C SOCIAL HISTORY:Homeless. PHYSICAL EXAM (Prior to examination, patient consented to physical exam, hands were washed and my usual and customary physical exam procedures followed) 1) GENERAL: Appears nontoxic. Sleeping, appears comfortable. 2) HEAD: Normocephalic, atraumatic 3) HEENT: Pupils equal, round, reactive to light bilaterally. Sclera anicteric. 4) NECK: Full range of motion, no meningeal signs. 5) LUNGS: Clear auscultation bilaterally, no wheezes, no rhonchi, no retractions. 6) HEART: Regular rate and rhythm, no murmur, no heave, no gallop. 7) ABDOMEN: No guarding, no rebound, no focal tenderness, negative McBurney's, negative Fall's, negative Rovsing's, negative peritoneal sign, 8) MUSCULOSKELETAL: Left lower extremity: Poor foot hygiene overall. Hypertrophic nails throughout the left foot. Areas of macerated tissue on the plantar aspect with no evidence of trench foot,. On the left great toe she has purulent discharge and foul smell from the subungual region. The toenail on the great toe is already partially avulsed , hypertrophic, ingrown on the lateral aspect. . There is mild halo erythema. There is no lymphangitic streaking. There is no pain with axial loading of the MTP. There is no crepitus. Soft compartments of the foot. There is No gangrene. Right lower extremity: Patient will not allow me to examine her right foot. Keeps her shoe on. 9) BACK: No visual or palpable abnormality. 10) SKIN: No rash, no petechiae. 11) Psychiatric: Patient is oriented X 3, there is no agitation. 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 - Social History Smoking Status: Current every day smoker Constitutional: Initial Vital Signs Temperature (C) 37.1 C 03/10/19 08:33 Heart Rate 93 03/10/19 08:33 Respiratory Rate 16 03/10/19 08:33 Blood Pressure 124/92 H 03/10/19 08:33 O2 Sat (%) 100 03/10/19 08:33 O2 Delivery Mode Room Air Allergies/Adverse Reactions: Sulfa (Sulfonamide Antibiotics) Allergy (Verified 03/10/19 09:10) Home Medications: Medication Instructions Recorded ARIPiprazole [Abilify] 30 mg PO DAILY 13 Days #13 tablet 01/22/19 Gabapentin 600 mg PO TID 30 Days #90 tablet 01/22/19 hydrOXYzine HCL 50 mg PO Q6HRS PRN 30 Days #120 tab 01/22/19 Cephalexin [Keflex] 500 mg PO TID 7 Days cap 03/10/19 Gabapentin 03/10/19 Seroquel 03/10/19 Medical Decision Making - Diagnostics Imaging Results: Imaging Impressions Toe X-Ray 03/10/19 09:13 Impression: There is no acute osseous abnormality identified. Images reviewed myself Procedures: Procedure: toenail removal of left great toe Indication: Subungual purulent discharge and pre-hospital partial avulsion of nail Indications risks benefits discussed with patient. 1% plain lidocaine digital nerve block placed by myself achieving total anesthesia distally. There is an prepped draped normal sterile fashion. The left great toenail was already partially avulsed was further removed by myself. I was able to visualize the subungual region which has purulent discharge. I explored this area, irrigated , there is no deep fistula. There is no connection to the bone. The patient then requested I trim her other hypertrophic nails come particularly her 2nd 3rd toe however upon doing this she incurred pain as these were not digitally blocked. ED Course/Re-evaluation: Patient had requested a test. Patient's point of care urine test is negative. Please see procedure note for removal of toenail . patient tolerated procedure well. Doubt necrotizing fasciitis. Doubt gangrene. Doubt osteomyelitis. I think the patient can be treated on outpatient basis. Antibiotics provided the patient via hospital MAP program. Recommend she take these as directed. Today is Sunday. Recommend follow-up with the the [facility] tomorrow for wound check and foot care. Given clean socks. We discussed my usual and customary foot hygiene instructions. Patient feels comfortable being discharged. Care of patient under supervision of primary supervising physician Dr Vineet Guzman with whom I discussed case. - Data Points Point of Care Test Results: Urine Collection Date 03/10/19 Collection Time 08:58 HCG Results Negative Departure - Departure Disposition: Home, Routine, Self-Care Clinical Impression: Hypertrophy of nail, Ingrown toenail of left foot Condition: Good Instructions: Ingrown Nail (ED) Additional Instructions: Return to the ER if you develop redness, swelling, discharge, warmth to the wound, red streaks going up your leg, or any other symptoms that concern you. Referrals: [facility],. [Clinic] - 1 day without fail Prescriptions: Cephalexin [Keflex] 500 mg PO TID 7 Days cap
[2019-03-10] MEDS ORDERED: IBUPROFEN 800 MG TAB PO ONE (09:32)
[2019-03-10] MEDS ORDERED: ACETAMINOPHEN 500 MG TAB PO ONE (09:33)
[2019-03-10 10:03] VITALS: BP 126/75
--- NOTE | 2019-03-10 20:48 | ASMTCMCOM ---
CM Note CM Note Notes: Pt presented to the ED via EMS for left greater toe pain and concerns about being . Please refer to ED Provider's Report for assessment and treatment notes. Pt ready for discharge. CM reviewed pt's chart and read past CM Reports. CM called [facility] and spoke w/Pham; pt was seen at on 03/03/19 and 02/26/19. Pt had an appt this morning at 9am but "no showed." It is noted that pt presented to the ED via EMS at 0855. CM scheduled pt a follow up appt with her PCP Africa Mae tomorrow at 11:20am. Pt states she will be able to make it to this appt. CM requested to MAP pt's abx Rxn. Pt's Medicaid is active so pt was provided her Rxn for Keflex and recommended to have it filled at the [facility]. Pt states she can walk down to [facility] and fill the Rxn. After filling her Rxn, pt returned to the ED waiting area and requested assistance w/ronny BRAND for a Medicaid cab to the [facility]. CM talked to the pt in the waiting area and confirmed where she would like to be transported. CM called and arranged for a Medicaid cab to transport pt to the [facility]; pt states she plans on taking the bus to the [facility] when it opens later. CM available for further assistance if needed. Date Signed: 03/10/2019 08:47 PM Electronically Signed By:Bushra Graham RN
== END 2019-03-10 10:03 | disposition home or self-care (01) ==
LOC: EDUNIT#
PROC: 0HTRXZZ Resection of Toe Nail, External Approach (ICD-10-PCS; principal; 2019-03-10)
DX: L60.2 Onychogryphosis (principal); L60.0 Ingrowing nail; Z59.0 Homelessness
CPT/HCPCS: 81025-ER; L4386

== ENCOUNTER 2019-04-18 08:28 | Inpatient (IN) | payer OTHER, MEDICAID | END 2019-04-24 13:28 | disposition home or self-care (01) | LOC: F2N 04-19 06:22 → F3E 04-21 10:23 → F2N 13:32 ==